=== PATIENT | male | born 1945 | race Caucasian/White ===

== ENCOUNTER 2016-07-29 18:40 | Inpatient (IN) | payer OTHER ==
[~2016-07-29] VITALS: Ht 180.3 cm; Wt 101.3 kg
[~2016-07-29 18:40] MED LIST: ALTACE5 MG PO; ASPIR 8181 M1 PO; COREG CR10 MG PO; FENOFIBRATE134 M1 PO; FISH OIL 1,0001 EAC7 PO; LEXAPRO20 MG PO; LIPITOR40 MG PO; LOFIBRA134 MG PO; NEXIUM20 MG PO; RAMIPRIL5 MG PO; VITAMIN D-32000 UNI2 PO
[2016-07-29 19:30] LABS: HEMATOCRIT 45.7 % (38.0-50.0); MCH 30.3 PG (29.0-34.0); MCHC 33.5 G/DL (30.0-36.0); MCV 90.5 FL (86-99); MEAN PLAT.VOLUME 8.8 uM^3 (9.0-12.4); PLATELET COUNT 298 K/uL (156-360); RBC DIS.WIDTH-CV 12.9 % (11.8-14.6); RBC DIS.WIDTH-SD 41.9 % (39-53); RED BLOOD COUNT 5.05 M/uL (4.00-5.50); WHITE BLOOD COUNT 8.3 K/uL (4.1-10.2)
[2016-07-29 19:38] LABS: CHLORIDE 110 mEq/L (99-109); POTASSIUM 3.9 mEq/L (3.7-5.4); SODIUM 141 mEq/L (136-147)
[2016-07-29 19:40] LABS: GLUCOSE 86 mg/dL (70-99)
[2016-07-29 19:42] LABS: ANION GAP 7 MEQ/L (2-14)
[2016-07-29 19:44] LABS: GFR ESTIMATE (CALCULATED) > 59 mL/min/
[2016-07-29 19:45] LABS: UREA NITROGEN (BUN) 10 mg/dL (9-23)
[2016-07-29 20:26] LABS: TROP-I INTERPRETATION NEGATIVE; TROPONIN-I 0.06 ng/mL (0.0-0.30)
[2016-07-30 01:10] LABS: PROTHROMBIN TIME 9.9 (9.2-11.2); PTT 30 (25-32)
[2016-07-30 02:30] LABS: TROP-I INTERPRETATION NEGATIVE; TROPONIN-I 0.05 ng/mL (0.0-0.30)
[2016-07-30 07:06] LABS: HEMATOCRIT 48.8 % (38.0-50.0); MCH 30.4 PG (29.0-34.0); MCHC 33.6 G/DL (30.0-36.0); MCV 90.5 FL (86-99); MEAN PLAT.VOLUME 9.1 uM^3 (9.0-12.4); PLATELET COUNT 296 K/uL (156-360); RBC DIS.WIDTH-CV 13.1 % (11.8-14.6); RBC DIS.WIDTH-SD 43.3 % (39-53); RED BLOOD COUNT 5.39 M/uL (4.00-5.50); WHITE BLOOD COUNT 7.2 K/uL (4.1-10.2)
[2016-07-30 07:34] LABS: HDL CHOLESTEROL 43 MG/DL (Desirable>=40); LDL CHOLESTEROL 173 mg/dL (Desirable<100); NON-HDL CHOLESTEROL 249 mg/dL (Desirable<160); TOTAL CHOLESTEROL 292 mg/dL (Desirable<200); TRIGLYCERIDES 380 MG/DL (Normal: <150)
[2016-07-30 07:44] LABS: TROP-I INTERPRETATION NEGATIVE; TROPONIN-I 0.05 ng/mL (0.0-0.30)
[2016-07-30 09:52] VITALS: BP 164/86
[2016-07-30 12:00] VITALS: BP 169/87
[2016-07-30] MEDS ORDERED: LOPRESSOR25 MG PO (13:47)
[2016-07-30] MEDS ORDERED: ATORVASTATIN CA40 MG PO (13:47)
[2016-07-30] MEDS ORDERED: ASPIR-LOW81 MG PO (13:47)
[2016-07-30] MEDS ORDERED: NITROSTAT0.4 MG SL (13:47)
== END 2016-07-30 15:48 | disposition home or self-care (01) | DRG 313 ==
LOC: EME 18:40 → EXP 18:40 → EDOF 22:42 → 4SOUTH 22:42 → EDOF 07-30 06:48 → 4SOUTH 07-30 09:36
PROVIDERS: Family Medicine; Physician Assistant
DX: R07.89 Other chest pain (principal); I25.10 Atherosclerotic heart disease of native coronary artery without angina pectoris; I10 Essential (primary) hypertension; E78.5 Hyperlipidemia, unspecified; J43.9 Emphysema, unspecified; F43.9 Reaction to severe stress, unspecified; M19.90 Unspecified osteoarthritis, unspecified site; Z87.891 Personal history of nicotine dependence; Z98.61 Coronary angioplasty status; I25.2 Old myocardial infarction; Z89.221 Acquired absence of right upper limb above elbow; Z82.49 Family history of ischemic heart disease and other diseases of the circulatory system; Z91.128 Patient's intentional underdosing of medication regimen for other reason; Z68.31 Body mass index [BMI] 31.0-31.9, adult
CPT/HCPCS: 71020; 80048; 80061; 84484; 85027; 85610; 85730; 93005; 99281; 99285

== ENCOUNTER 2017-03-19 17:07 | Observation (INO) | payer OTHER ==
[~2017-03-19] VITALS: Ht 180.3 cm; Wt 86.2 kg
[~2017-03-19 17:07] MED LIST changes: +ASPIR-LOW81 MG PO; +ATORVASTATIN CA40 MG PO; +LOPRESSOR25 MG PO; +NITROSTAT0.4 MG SL
[2017-03-19 19:00] LABS: HEMATOCRIT 41.3 % (38.0-50.0); MCH 30.1 PG (29.0-34.0); MCHC 32.7 G/DL (30.0-36.0); MCV 92.2 FL (86-99); PLATELET COUNT 185 K/uL (156-360); RBC DIS.WIDTH-CV 13.1 % (11.8-14.6); RED BLOOD COUNT 4.48 M/uL (4.00-5.50); WHITE BLOOD COUNT 7.2 K/uL (4.1-10.2)
[2017-03-19 19:11] LABS: CHLORIDE 106 mEq/L (99-109); POTASSIUM 4.5 mEq/L (3.7-5.4); SODIUM 138 mEq/L (136-147)
[2017-03-19 19:14] LABS: GLUCOSE 114 mg/dL (70-99)
[2017-03-19 19:15] LABS: ANION GAP 7 MEQ/L (2-14); TOTAL BILIRUBIN 0.4 mg/dL (0.0-1.0)
[2017-03-19 19:17] LABS: ALKALINE PHOSPHATASE 82 IU/L (3-129); GFR ESTIMATE (CALCULATED) > 59 mL/min/
[2017-03-19 19:18] LABS: UREA NITROGEN (BUN) 14 mg/dL (9-23)
[2017-03-19 19:21] LABS: LIPASE 20 U/L (1.0-51.0)
[2017-03-19 19:24] LABS: TROP-I INTERPRETATION NEGATIVE; TROPONIN-I < 0.01 ng/mL (0.0-0.30)
[2017-03-19] MEDS ORDERED: LIPITOR80 MG PO (21:09)
[2017-03-19] MEDS ORDERED: ALEVE220 MG PO (21:10)
[2017-03-19] MEDS ORDERED: LO-DOSE ASPIRIN81 M1 PO (21:10)
[2017-03-19] MEDS ORDERED: VITAMIN E100 UNIT PO (21:10)
[2017-03-19] MEDS ORDERED: LISINOPRIL5 MG PO (21:10)
[2017-03-19] MEDS ORDERED: PLAVIX75 MG PO (21:10)
[2017-03-19 22:58] VITALS: BP 133/60
[2017-03-20 01:23] LABS: TROP-I INTERPRETATION NEGATIVE; TROPONIN-I < 0.01 ng/mL (0.0-0.30)
[2017-03-20 03:47] VITALS: BP 118/56
[2017-03-20 05:29] LABS: HEMATOCRIT 38.1 % (38.0-50.0); MCH 30.1 PG (29.0-34.0); MCHC 32.3 G/DL (30.0-36.0); MCV 93.2 FL (86-99); MEAN PLAT.VOLUME 9.2 uM^3 (9.0-12.4); PLATELET COUNT 191 K/uL (156-360); RBC DIS.WIDTH-CV 13.1 % (11.8-14.6); RBC DIS.WIDTH-SD 44.7 % (39-53); RED BLOOD COUNT 4.09 M/uL (4.00-5.50); WHITE BLOOD COUNT 6.3 K/uL (4.1-10.2)
[2017-03-20 05:31] LABS: TROP-I INTERPRETATION NEGATIVE; TROPONIN-I < 0.01 ng/mL (0.0-0.30)
[2017-03-20 05:38] LABS: ALKALINE PHOSPHATASE 66 IU/L (3-129); ANION GAP 6 MEQ/L (2-14); CHLORIDE 111 MEQ/L (99-109); DIRECT BILIRUBIN 0.1 mg/dL (0.0-0.3); GFR ESTIMATE (CALCULATED) > 59 mL/min/; GLUCOSE 117 mg/dL (70-99); POTASSIUM 3.9 MEQ/L (3.7-5.4); SAMPLE HEMOLYSIS CHECK 0; SAMPLE ICTERIC CHECK 0; SAMPLE LIPEMIA CHECK 0; SODIUM 144 MEQ/L (136-147); TOTAL BILIRUBIN 0.3 MG/DL (0.0-1.0); UREA NITROGEN (BUN) 16 mg/dL (9-23)
[2017-03-20 06:01] LABS: EOSINOPHIL (%) 0.6 % (0-5); IMMATURE GRANULOCYTE (%) 0.3 % (0.0-0.7); INSTRUMENT ABS NEUTROPHIL CT 2.8 K/uL; MONOCYTE (%) 6.8 % (3-12); MONOCYTE COUNT 0.4 K/uL (0-0.8); NEUTROPHIL COUNT 2.8 K/uL (1.8-6.4)
[2017-03-20 07:12] VITALS: BP 130/63
[2017-03-20 10:43] VITALS: BP 124/76
== END 2017-03-20 12:37 | disposition home or self-care (01) ==
LOC: EME 17:07 → 5WEST 21:30 → EDOF 21:30 → ENRESERV 21:38 → 5WEST 22:35
PROVIDERS: Emergency Medicine; Physician Assistant
DX: R55 Syncope and collapse (principal); I25.10 Atherosclerotic heart disease of native coronary artery without angina pectoris; I25.2 Old myocardial infarction; Z95.5 Presence of coronary angioplasty implant and graft; E78.5 Hyperlipidemia, unspecified; I10 Essential (primary) hypertension; M19.90 Unspecified osteoarthritis, unspecified site; Z89.201 Acquired absence of right upper limb, unspecified level; I71.4 Abdominal aortic aneurysm, without rupture; N28.1 Cyst of kidney, acquired; M16.0 Bilateral primary osteoarthritis of hip; Z79.82 Long term (current) use of aspirin; Z79.02 Long term (current) use of antithrombotics/antiplatelets; Z80.3 Family history of malignant neoplasm of breast; Z82.0 Family history of epilepsy and other diseases of the nervous system; Z82.49 Family history of ischemic heart disease and other diseases of the circulatory system
CPT/HCPCS: 71010; 74176; 80048; 80053; 80076; 83690; 83880; 84484; 85025; 85027; 93005; 99281; 99285; G0378; J1650; J7030